=== PATIENT | male | born 1985 | race Caucasian/White ===

== ENCOUNTER 2017-04-14 09:32 | Emergency (ER) | payer MEDICAID ==
[~2017-04-14] VITALS: Ht 167.6 cm; Wt 59.1 kg
[2017-04-14 10:34] VITALS: BP 132/73
--- NOTE | 2017-04-14 10:36 | NUR ---
PT AMBULATES BACK TO THE LOBBY
--- NOTE | 2017-04-14 11:08 | NUR ---
PATIENT AMB. TO CHAIR#A WITH MOTHER
--- NOTE | 2017-04-14 11:37 | NUR ---
PT SITTING IN CHAIR, HERE FOR C.O GRADUAL ONSET CONSTANT HEADACHE X 1 MONTH, WORSENING IN THE LAST FEW DAYS. DENIES VISUAL CHANGES, DENIES FEVERS/CHILLS, NO N/V/D/ . PT REPORTS ITS IN FRONTAL LOBE-NON RADAITING. RESP EVEN AND UNALBORED, IN NAD. VSS, AT BEDSIDE. NO FACIAL GRIMACING NOTED, NO FACIAL DROOP, SKIN W/D/I
--- NOTE | 2017-04-14 11:43 | NUR ---
DR LIN AT BEDSIDE FOR EXAM
[2017-04-14 12:15] VITALS: BP 132/73
--- NOTE | 2017-04-14 12:19 | NUR ---
Patient discharged with v/s stable. Written and verbal after care instructions given and explained. Patient alert, oriented and verbalized understanding of instructions. Ambulatory with steady gait. All questions addressed prior to discharge. ID band removed. Patient advised to follow up with PMD. Rx of CLARITIN given. Patient educated on indication of medication including possible reaction and side effects. Opportunity to ask questions provided and answered.
== END 2017-04-14 12:19 | disposition home or self-care (01) ==
LOC: MED 09:32
DX: J32.9 Chronic sinusitis, unspecified (principal)
CPT/HCPCS: 99282

== ENCOUNTER 2020-06-24 13:05 | Emergency (ER) | payer MEDICAID, OTHER ==
[~2020-06-24] VITALS: Ht 167.6 cm; Wt 63.5 kg
[2020-06-24 13:07] VITALS: BP 144/80
--- NOTE | 2020-06-24 13:12 | NUR ---
Patient ambulated to bed 11. RN evaluating the patient at bedside.
--- NOTE | 2020-06-24 13:24 | NUR ---
milieu technician at bedside.
--- NOTE | 2020-06-24 13:31 | NUR ---
34/M C/O LEFT SIDED CHEST PAIN SINCE LAST NIGHT. PT STATES HE RECEIVED THE COVID VACCINE YESTERDAY. DENIES FEVER OR CHILLS. HX DENIES
--- NOTE | 2020-06-24 13:42 | NUR ---
DEJA León is evaluating the patient at bedside.
[2020-06-24 14:04] LABS: BASOPHILS % (AUTO) 0.2 % (0.0-2.0); HEMATOCRIT 44.6 % (36-52); HEMOGLOBIN 15.2 g/dL (12.0-18.0); LYMPHOCYTES # (AUTO) 0.7 K/uL (2.0-11.5); LYMPHOCYTES % (AUTO) 7.8 % (20.5-51.1); MEAN CORPUSCULAR HEMOGLOBIN 29 pg (27-31); MEAN CORPUSCULAR HGB CONC 34 g/dL (33-37); MEAN CORPUSCULAR VOLUME 86.3 fL (80-94); MONOCYTES # (AUTO) 0.6 K/uL (0.8-1.0); NEUTROPHILS # (AUTO) 7.7 K/uL (1.8-7.7); PLATELET COUNT (AUTO) 192 K/uL (140-450); RED BLOOD CELL COUNT(AUTO) 5.16 MIL/uL (4.20-6.10); RED CELL DISTRIBUTION WIDTH 13.1 % (11.6-13.7)
[2020-06-24 14:24] LABS: ALBUMIN 3.9 g/dL (3.4-5.0); ANION GAP 12.9 (8-16); CARBON DIOXIDE 28.5 mmol/L (21-32); CREATININE 1.1 mg/dL (0.6-1.3); POTASSIUM 3.4 mmol/L (3.5-5.1); TOTAL BILIRUBIN 0.6 mg/dL (0.0-1.0)
[2020-06-24] MEDS ORDERED: IBUP-2213 PO (14:49)
[2020-06-24 15:19] VITALS: BP 138/76
== END 2020-06-24 15:15 | disposition home or self-care (01) ==
LOC: MED 13:05
DX: R07.9 Chest pain, unspecified (principal); T50.B95A Adverse effect of other viral vaccines, initial encounter; Y92.89 Other specified places as the place of occurrence of the external cause
CPT/HCPCS: 36415; 71045; 80053; 83690; 83880; 84484; 85025; 93005; 99285